=== PATIENT | female | born 1965 | race Asian ===

== ENCOUNTER 2018-10-07 21:49 | Emergency (ER) | payer SELFPAY ==
[~2018-10-07] VITALS: Ht 172.7 cm; Wt 70.0 kg
[2018-10-08] MEDS ORDERED: KETOROLAC 60MG/2ML VIAL IM ONE (01:15)
[2018-10-08 03:13] VITALS: BP 142/75
== END 2018-10-08 03:14 | disposition home or self-care (01) ==
LOC: ER 10-08 01:32
DX: S60.212A Contusion of left wrist, initial encounter (principal); M25.552 Pain in left hip; V49.59XA Passenger injured in collision with other motor vehicles in traffic accident, initial encounter; Y93.89 Activity, other specified; Y92.89 Other specified places as the place of occurrence of the external cause; Y99.8 Other external cause status; Z98.890 Other specified postprocedural states
CPT/HCPCS: 73090; 73110; 73502; 96372; 99283; J1885